=== PATIENT | male | born 1985 | race Caucasian/White ===

== ENCOUNTER 2018-02-19 16:06 | Emergency (ER) | payer SELFPAY ==
[~2018-02-19] VITALS: Ht 182.9 cm; Wt 100.0 kg
[2018-02-19 16:21] VITALS: BP 121/76; PULSE 89; RESP 14; TEMP 98.2; O2SAT 98
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
[2018-02-19] MEDS ORDERED: SULFAMETHOXAZOLE-TRIMETHOPRIM DS 800-160 MG TAB PO ONE (18:15)
[2018-02-19] MEDS ORDERED: IBUPROFEN 800 MG TAB PO ONE (18:15)
[2018-02-19] MEDS ORDERED: ACETAMINOPHEN 325 MG TAB PO ONE (18:15)
[2018-02-19] MEDS ORDERED: IBUP1TAB7 PO (18:31)
[2018-02-19] MEDS ORDERED: MAPA500T13 PO (18:31)
[2018-02-19] MEDS ORDERED: BACT800T5 PO (18:31)
== END 2018-02-19 18:53 | disposition home or self-care (01) ==
LOC: NEPD 16:06
DX: L02.415 Cutaneous abscess of right lower limb (principal); B95.62 Methicillin resistant Staphylococcus aureus infection as the cause of diseases classified elsewhere
CPT/HCPCS: 10060; 86403; 87070; 87186; 99283; E0113; 87205